=== PATIENT | female | born 1975 | race Two or more races ===

== ENCOUNTER 2016-09-13 12:41 | Emergency (ER) | payer SELFPAY ==
[2016-09-13 12:46] VITALS: BP 116/71; PULSE 86; TEMP 98.1; BMI 21.2
--- NOTE | 2016-09-13 13:17 | PDOC ---
History of Present Illness - General History Source: Patient Exam Limitations: No Limitations - History of Present Illness Initial Comments: 09/13/16 13:25 Patient is a 41 year old female with hx of HTN who presents today with right hip pain. She notes that the pain radiates to the right ankle. She reports cramping of the lower extremities. Denies any recent injury, trauma or strenuous activity. Denies abdominal pain or urinary symptoms. <Tana Gerard - Last Filed: 09/13/16 14:00> <Kelly Lockett - Last Filed: 09/13/16 14:45> - General Chief Complaint: Pain, Acute Stated Complaint: RT SIDE PAIN Time Seen by Provider: 09/13/16 13:05 Past History <Tana Gerard - Last Filed: 09/13/16 14:00> - Past Medical History HTN: Yes - Surgical History Abdominal Surgery: Yes (HERNIA REPAIR) - Psycho/Social/Smoking Cessation Hx Suicidal Ideation: No Smoking History: Never smoked Information on smoking cessation initiated: No Hx Alcohol Use: Yes Drug/Substance Use Hx: No <Kelly Lockett - Last Filed: 09/13/16 14:45> - Past Medical History Allergies/Adverse Reactions: Allergies Allergy/AdvReac Type Severity Reaction Status Date / Time No Known Allergies Allergy Verified 09/13/16 12:46 Home Medications: Ambulatory Orders Ibuprofen 600 mg PO QID PRN #20 tablet 09/13/16 Review of Systems - Review of Systems Able to Perform ROS?: Yes Comments:: 09/13/16 13:25 CONSTITUTIONAL: Absent: fever, no chills, no fatigue EYES: Absent: visual changes ENT: Absent: ear pain, no sore throat CARDIOVASCULAR: Absent: chest pain, no palpitations RESPIRATORY: Absent: cough, no SOB GI: Absent: abdominal pain, no nausea, no vomiting, no constipation, no diarrhea GENITOURINARY: Absent: dysuria, no frequency, no hematuria MUSCULOSKELETAL: Present: right hip pain Absent: back pain, no myalgia SKIN: Absent: rash <Tana Gerard - Last Filed: 09/13/16 14:00> *Physical Exam - Vital Signs Last Vital Signs Temp Pulse Resp BP Pulse Ox 98.1 F 86 16 116/71 99 09/13/16 12:42 09/13/16 12:42 09/13/16 12:42 09/13/16 12:42 09/13/16 12:42 - Physical Exam Comments: 09/13/16 13:26 GENERAL: Well-appearing, well-nourished. No apparent distress. HEENT: Normocephalic, atraumatic. PERRL, EOM intact. CARDIOVASCULAR: Normal S1, S2. Regular rate and rhythm. PULMONARY: Clear to auscultation bilaterally. ABDOMEN: Soft, non-distended, non-tender. EXTREMITIES (+)Pain with lifting up the legs and with ROM to the right hip. No gross deformities. SKIN: Warm, dry. No rash NEUROLOGICAL: No focal neurological deficits. <Tana Gerard - Last Filed: 09/13/16 14:00> - Vital Signs Last Vital Signs Temp Pulse Resp BP Pulse Ox 98.1 F 86 16 116/71 99 09/13/16 12:42 09/13/16 12:42 09/13/16 12:42 09/13/16 12:42 09/13/16 12:42 - Physical Exam Gastrointestinal/Abdominal: positive: Normal Bowel Sounds, Soft. negative: Tender (no abdominal tenderness. NO CVAT) Musculoskeletal: positive: Normal Inspection, Other (pain worse with leg raises and pain radiating to lower extremity. no signs of [place] symptoms). negative: CVA Tenderness <Kelly Lockett - Last Filed: 09/13/16 14:45> ED Treatment Course - RADIOLOGY Radiology Studies Ordered: Category Date Time Status HIP & PELVIS-RIGHT [RAD] Stat Radiology 09/13/16 13:16 Ordered <Kelly Lockett - Last Filed: 09/13/16 14:45> Medical Decision Making - Medical Decision Making 09/13/16 14:25 right hip pain P: pain control xray negative. official read pending. <Kelly Locktet - Last Filed: 09/13/16 14:45> *DC/Admit/Observation/Transfer - Attestations Scribe Attestion: 09/13/16 13:28 Documentation prepared by MITRA Erickson, acting as faculty i on call medical assistant for Kelly Lockett NP. <Tana Gerard - Last Filed: 09/13/16 14:00> <Kelly Lockett - Last Filed: 09/13/16 14:45> Diagnosis at time of Disposition: Hip pain, right - Discharge Dispostion Disposition: HOME - Prescriptions Prescriptions: Ibuprofen 600 mg PO QID PRN #20 tablet PRN Reason: Moderate Pain - Referrals Referrals: Ryan Arthur MD [Staff Physician] - - Patient Instructions Printed Discharge Instructions: DI for Sciatica Additional Instructions: follow up with your doctor as soon as possible. light stretches as tolerated take ibuprofen as prescribed. - Post Discharge Activity Work/School Note: Back to Work
[2016-09-13] MEDS ORDERED: IBUPROFEN 600 MG TABLET (FP) PO ONE ×2 (14:27)
== END 2016-09-13 15:05 | disposition home or self-care (01) ==
LOC: JERFT 12:41
DX: M25.551 Pain in right hip (principal)
CPT/HCPCS: 73523-TC; 84703; 99281-25